=== PATIENT | female | born 1945 | race Caucasian/White ===

== ENCOUNTER → 2023-09-12 10:57 | Outpatient (REF) | payer MEDICARE, SELFPAY | LOC: HWRAD 10:57 | PROVIDERS: ATTENDING PHYSICIAN Nurse Practitioner | DX: N94.9 Unspecified condition associated with female genital organs and menstrual cycle (principal) | CPT/HCPCS: 76856 ==

== ENCOUNTER → 2023-11-06 14:23 | Outpatient (REF) | payer MEDICARE, SELFPAY ==
[2023-11-06 15:57] LABS: % Basophils 0.8 % (0-2); % Eosinophils 4.6 % (0-6); % Immature Granulocytes 0.3 % (0-0.5); % Lymphocytes 24.2 % (20.5-51.1); % Monocytes 10.7 % (1.7-9.3); % Neutrophils 59.4 % (42.2-75.2); Absolute Basophils 0.1 10^3/uL (0-0.2); Absolute Eosinophils 0.3 10^3/uL (0-0.7); Absolute Lymphocytes 1.8 10^3/uL (1.2-3.4); Absolute Monocytes 0.8 10^3/uL (0.1-0.6); Absolute Neutrophils 4.4 10^3/uL (1.4-6.5); Hematocrit 39.2 % (37.0-47.0); Mean Corp Hgb Conc. 33.2 g/dL (33.0-37.0); Mean Corpuscular Hgb 30.1 pg (27.0-31.0); Mean Corpuscular Volume 90.7 fL (81.0-99.0); Mean Platelet Volume 9.2 fL (7.4-10.4); Nucleated Red Blood Cells % 0 %; Platelet Count 251 10^3/uL (130-400); Red Blood Cell Count 4.32 10^6/uL (4.20-5.40); Red Cell Dist. Width 12.2 % (11.5-14.5); White Blood Cell Count 7.4 10^3/uL (4.8-10.8)
[2023-11-06 16:17] LABS: ALT (SGPT) 18 U/L (0-35); AST (SGOT) 24 U/L (14-36); Albumin 4.4 g/dl (3.5-5.0); Alkaline Phosphatase 88 U/L (38-126); Blood Urea Nitrogen 18 mg/dl (7-17); Calcium 10.5 mg/dl (8.4-10.2); Carbon Dioxide 28 mmol/L (22-30); Chloride 100 mmol/L (98-107); Glucose 91 mg/dl (70-99); Potassium 3.8 mmol/L (3.5-5.1); Sodium 138 mmol/L (135-145); Total Protein 7.2 g/dl (6.3-8.2); eGFR > 60.00
[2023-11-06 17:56] LABS: CEA 1.26 ng/ml
[2023-11-07 05:02] LABS: CA 125 28.3 U/mL (0-35)
== END ==
LOC: REG 14:23
PROVIDERS: ATTENDING PHYSICIAN Obstetrics & Gynecology Gynecologic Oncology; FAMILY PHYSICIAN Nurse Practitioner
DX: R19.03 Right lower quadrant abdominal swelling, mass and lump (principal); R97.8 Other abnormal tumor markers; Z12.4 Encounter for screening for malignant neoplasm of cervix
CPT/HCPCS: 36415; 80053; 82378; 85025; 86304

== ENCOUNTER → 2024-01-10 13:39 | Outpatient (REF) | payer MEDICARE, SELFPAY ==
[2024-01-10 16:51] LABS: % Basophils 1.2 % (0-2); % Eosinophils 7.2 % (0-6); % Immature Granulocytes 0.3 % (0-0.5); % Lymphocytes 26.6 % (20.5-51.1); % Monocytes 11.9 % (1.7-9.3); % Neutrophils 52.8 % (42.2-75.2); Absolute Basophils 0.1 10^3/uL (0-0.2); Absolute Eosinophils 0.5 10^3/uL (0-0.7); Absolute Lymphocytes 1.8 10^3/uL (1.2-3.4); Absolute Monocytes 0.8 10^3/uL (0.1-0.6); Absolute Neutrophils 3.5 10^3/uL (1.4-6.5); Hematocrit 38.4 % (37.0-47.0); Hemoglobin 12.9 g/dL (12.0-16.0); Mean Corp Hgb Conc. 33.6 g/dL (33.0-37.0); Mean Corpuscular Hgb 30.1 pg (27.0-31.0); Mean Corpuscular Volume 89.5 fL (81.0-99.0); Mean Platelet Volume 8.9 fL (7.4-10.4); Nucleated Red Blood Cells % 0 %; Platelet Count 270 10^3/uL (130-400); Red Blood Cell Count 4.29 10^6/uL (4.20-5.40); Red Cell Dist. Width 11.9 % (11.5-14.5); White Blood Cell Count 6.7 10^3/uL (4.8-10.8)
[2024-01-10 17:16] LABS: ALT (SGPT) 17 U/L (0-35); AST (SGOT) 24 U/L (14-36); Albumin 4.1 g/dl (3.5-5.0); Alkaline Phosphatase 87 U/L (38-126); Blood Urea Nitrogen 16 mg/dl (7-17); Calcium 9.8 mg/dl (8.4-10.2); Carbon Dioxide 32 mmol/L (22-30); Chloride 99 mmol/L (98-107); Glucose 100 mg/dl (70-99); Sodium 139 mmol/L (135-145); Total Bilirubin 0.9 mg/dl (0.2-1.3); eGFR > 60.00
== END ==
LOC: HWLAB 13:39
PROVIDERS: ATTENDING PHYSICIAN Obstetrics & Gynecology Gynecologic Oncology; FAMILY PHYSICIAN Nurse Practitioner
DX: R19.03 Right lower quadrant abdominal swelling, mass and lump (principal); R97.8 Other abnormal tumor markers; Z12.4 Encounter for screening for malignant neoplasm of cervix
CPT/HCPCS: 36415; 80053; 85025

== ENCOUNTER 2024-01-23 06:11 | Day surgery (SDC) | payer MEDICARE, SELFPAY ==
[2024-01-23] VITALS (8 sets, daily range): BP systolic 112–139; BP diastolic 69–78; BMI 33.8
[2024-01-23] MEDS: CELEBREX 200 MG PO (06:29)
[2024-01-23] MEDS: TYLENOL 1000 MG PO (06:29)
[2024-01-23] MEDS: HEPARIN 5000 UNITS SC (06:34)
[2024-01-23] MEDS: NORMOSOL-R 1000 IV (06:44)
--- NOTE | 2024-01-23 07:08 | PTCARENOTE ---
Patient does agree she is having a hysterectomy today after speaking with surgeon. Patient was questioning it on arrival but surgeon spoke with her about it. Will monitor patient.
--- NOTE | 2024-01-23 09:30 | OR.RPT ---
Operative Report
Operative Report
Date of surgery January 23, 2024
Preoperative diagnosis enlarging right ovarian mass, prior history of open hiatal hernia repair as well as ventral hernia repair
Postoperative diagnosis right ovary with serous cystadenoma, intra-abdominal adhesions
Surgeon: Codey Loera
Case Operator: Nguyễn Gardiner
Procedure:
Robotic assisted total laparoscopic hysterectomy, bilateral salpingo-oophorectomy with pelvic washings
Laparoscopic lysis of adhesions
TAP block
Repair of perineal laceration
Anesthesia: General endotracheal intubation
Estimated blood loss 50 cc
Complication: None
Procedure in detail this patient was taken to the operating room and placed in supine position, she underwent general anesthesia and was intubated without any difficulty. She was positioned in lithotomy position using yellowfin stirrups and arms
were wrapped in foam and placed along the patient's side and all joints were properly protected. She was prepped on the abdomen perineum and vagina and Hu catheter was inserted under sterile condition after the patient was draped. Timeout
procedure was carried out. Anterior lip of the cervix was grasped with single-tooth tenaculum endocervical canal was dilated and sounded to about 7 to 8 cm. Planning Rn uterine manipulator was placed in the cervical canal with 3 cm NAPOLEON ring.
Vaginal occluder was insufflated. Attention was turned abdominally, Veress needle was inserted just below the left costal margin and abdomen was insufflated with CO2 gas up to pressure of 15 mmHg. Optiview approach was used to enter under direct
laparoscopy and right upper quadrant and we were able to enter the abdominal cavity without any difficulty. Next under direct visualization 8 mm robotic ports were placed right lateral abdomen, and left lateral abdomen. I used laparoscopic
scissors to take down adhesions just below the ventral hernia in the upper abdomen and then was able to place the supraumbilical as well as left upper quadrant port. Upper abdomen was examined, liver spleen stomach and omentum were unremarkable and
there were no abnormal lesions present. Patient was placed in 30 degree Trendelenburg and robotic system was docked. We turned our attention to the pelvis, there were significant adhesions between the sigmoid colon and left infundibulopelvic
ligament as well as left ovary and these were carefully taken down. Both round ligaments were sealed and divided, anterior and posterior leaves of the broad ligament were dissected open and the course of the ureter was identified in the
retroperitoneum. An avascular window was created between the IP and ureter bilaterally. Both IP ligaments were sealed and divided 3 times. The left tube and ovary was left attached to the uterus and and the adhesions on the left side were taken
down to free up the ovary. The right tube and ovary was detached from the uterus and placed in a separate endoscopic bags for future retrieval. There were adhesions in the anterior cul-de-sac which were taken down and bladder flap was sharply
developed and advanced below the NAPOLEON ring. Uterine arteries followed by the cardinal ligaments followed by uterosacral ligaments were sealed and divided, circumferential incision was made over the NAPOLEON ring and the specimen was detached. Uterus and
cervix and left tube and ovary was removed followed by a bag containing right tube and ovary. The right tube and ovary was sent for frozen section which returned back as a smooth walled mass consistent with serous cystadenoma. The vaginal cuff was
closed with 0 Vicryl suture ligature in a [id number] fashion at both apices incorporating uterosacral ligaments for support. 2�0 V-Loc suture was used to close the vaginal cuff in 2 layers starting from right to left and back to the right
side. Good hemostasis was obtained. All operative sites were examined and there was no evidence of bleeding. We turned our attention to the regional block. A mixture of 30 cc 0.5% ropivacaine and 30 cc sterile saline was injected under direct
visualization approximately 2 fingerbreadths below costal margin above the peritoneum, as well as right and left lateral abdomen. At this point all instruments were removed and pneumoperitoneum was released. All incisions were closed at the skin
level with 4-0 Monocryl in a subcuticular fashion. Hu catheter was removed. The perineum had a second-degree laceration which was repaired with a 3-0 Vicryl in a running fashion and this was closed and tied. Rectal examination did not reveal
any injury to the rectal sphincter or rectal mucosa. Vagina was without any other lacerations and the cuff was intact and no bleeding was encountered. Counts of laps instruments and needle was correct x 2. I was present and scrubbed for the
entire procedure as dictated above. I did not perform any surgical staging as there was no indication of malignancy based on frozen section.
Disposition: To PACU, stable extubated
[2024-01-23] MEDS: DILAUDID 0.25 MG IV ×2 (10:08→10:25)
[2024-01-23] MEDS: TYLENOL 650 MG PO (12:30)
== END 2024-01-23 14:30 | disposition home or self-care (01) ==
LOC: SDS 06:11
PROVIDERS: ATTENDING PHYSICIAN Obstetrics & Gynecology Gynecologic Oncology
DX: D27.0 Benign neoplasm of right ovary (principal); R19.03 Right lower quadrant abdominal swelling, mass and lump; K66.0 Peritoneal adhesions (postprocedural) (postinfection)
CPT/HCPCS: 58571; 88305; 88307; 86850; 86900; 86901; 87070; 88112; 88329

== ENCOUNTER → 2024-04-23 12:49 | Outpatient (REF) | payer MEDICARE, SELFPAY | LOC: HWWDC 12:49 | PROVIDERS: ATTENDING PHYSICIAN Nurse Practitioner | DX: M85.80 Other specified disorders of bone density and structure, unspecified site (principal); Z12.31 Encounter for screening mammogram for malignant neoplasm of breast; N28.1 Cyst of kidney, acquired; M85.89 Other specified disorders of bone density and structure, multiple sites | CPT/HCPCS: 76775; 77063; 77067; 77080 ==

== ENCOUNTER → 2024-10-04 13:43 | Outpatient (REF) | payer MEDICARE, SELFPAY | LOC: HWRAD 13:43 | PROVIDERS: ATTENDING PHYSICIAN Nurse Practitioner Adult Health | DX: R09.89 Other specified symptoms and signs involving the circulatory and respiratory systems (principal) | CPT/HCPCS: 93880 ==

== ENCOUNTER → 2024-11-07 09:23 | Outpatient (REF) | payer MEDICARE, SELFPAY ==
[2024-11-07 12:55] LABS: % Basophils 0.7 % (0-2); % Eosinophils 6.8 % (0-6); % Immature Granulocytes 0.4 % (0-0.5); % Lymphocytes 20.8 % (20.5-51.1); % Monocytes 10.4 % (1.7-9.3); % Neutrophils 60.9 % (42.2-75.2); Absolute Basophils 0.1 10^3/uL (0-0.2); Absolute Eosinophils 0.6 10^3/uL (0-0.7); Absolute Lymphocytes 1.8 10^3/uL (1.2-3.4); Absolute Monocytes 0.9 10^3/uL (0.1-0.6); Absolute Neutrophils 5.1 10^3/uL (1.4-6.5); Hematocrit 39.8 % (37.0-47.0); Hemoglobin 13.4 g/dL (12.0-16.0); Mean Corp Hgb Conc. 33.7 g/dL (33.0-37.0); Mean Corpuscular Hgb 30.8 pg (27.0-31.0); Mean Corpuscular Volume 91.5 fL (81.0-99.0); Mean Platelet Volume 8.6 fL (7.4-10.4); Nucleated Red Blood Cells % 0 %; Platelet Count 267 10^3/uL (130-400); Red Blood Cell Count 4.35 10^6/uL (4.20-5.40); Red Cell Dist. Width 12.3 % (11.5-14.5); White Blood Cell Count 8.4 10^3/uL (4.8-10.8)
[2024-11-07 12:57] LABS: ALT (SGPT) 17 U/L (0-35); AST (SGOT) 20 U/L (14-36); Albumin 3.8 g/dl (3.5-5.0); Alkaline Phosphatase 90 U/L (38-126); Blood Urea Nitrogen 26 mg/dl (7-17); Calcium 10.2 mg/dl (8.4-10.2); Carbon Dioxide 30 mmol/L (22-30); Chloride 105 mmol/L (98-107); Glucose 113 mg/dl (70-99); HDL Cholesterol 78 mg/dl; LDL Cholesterol, Calculated 100 mg/dl; Potassium 3.8 mmol/L (3.5-5.1); Sodium 141 mmol/L (135-145); Total Bilirubin 1.2 mg/dl (0.2-1.3); Total Cholesterol 190 mg/dl (50-199); Total Protein 6.6 g/dl (6.3-8.2); Triglyceride 61 mg/dl (10-149); Very Low Density Lipoprotein 12 mg/dl (0-30); eGFR > 60.00
[2024-11-07 13:11] LABS: Vitamin D, 25-OH*** 73.8 ng/mL (30-80)
[2024-11-07 16:43] LABS: Urine Albumin 2+ (Neg - Trace); Urine Bilirubin Negative (Negative); Urine Character Clear (Clear); Urine Color Yellow; Urine Glucose Negative (Negative); Urine Ketone 1+ (Negative); Urine Leukocyte 3+ (Negative); Urine Nitrite Negative (Negative); Urine Occult Blood 1+ (Negative); Urine Urobilinogen 2+ (Neg - 1+); Urine pH 6.5 (5.0-9.0)
[2024-11-07 16:53] LABS: Urine Bacteria Moderate (Negative); Urine White Cell 30-40 /HPF (0-5)
== END ==
LOC: HWLAB 09:23
PROVIDERS: ATTENDING PHYSICIAN Nurse Practitioner Adult Health; REFERRING PHYSICIAN Internal Medicine
DX: I10 Essential (primary) hypertension (principal); K21.9 Gastro-esophageal reflux disease without esophagitis; N94.9 Unspecified condition associated with female genital organs and menstrual cycle; I35.0 Nonrheumatic aortic (valve) stenosis; G47.33 Obstructive sleep apnea (adult) (pediatric); I44.4 Left anterior fascicular block; I25.10 Atherosclerotic heart disease of native coronary artery without angina pectoris; M85.80 Other specified disorders of bone density and structure, unspecified site; R73.03 Prediabetes; M17.0 Bilateral primary osteoarthritis of knee; R76.8 Other specified abnormal immunological findings in serum
CPT/HCPCS: 36415; 80053; 80061; 81003; 81015; 82306; 84443; 85025; 87086

== ENCOUNTER → 2024-11-21 13:17 | Outpatient (REF) | payer MEDICARE, SELFPAY ==
[2024-11-21 16:45] LABS: Urine Albumin 2+ (Neg - Trace); Urine Bilirubin Negative (Negative); Urine Character Clear (Clear); Urine Color Yellow; Urine Glucose Negative (Negative); Urine Ketone Negative (Negative); Urine Leukocyte 2+ (Negative); Urine Nitrite Negative (Negative); Urine Occult Blood 1+ (Negative); Urine Urobilinogen 2+ (Neg - 1+); Urine pH 6.5 (5.0-9.0)
[2024-11-21 16:55] LABS: Urine Mucus Few; Urine Squamous Cell 0-2 /LPF (Few)
[2024-11-21 16:56] LABS: Urine Bacteria Few (Negative); Urine White Cell 0-2 /HPF (0-5)
[2024-11-22 09:19] LABS: Glycohemoglobin (HgbA1c) 5.6 % (4.0-5.6)
== END ==
LOC: HWLAB 13:17
PROVIDERS: ATTENDING PHYSICIAN Nurse Practitioner Adult Health
DX: R82.90 Unspecified abnormal findings in urine (principal); R73.01 Impaired fasting glucose
CPT/HCPCS: 36415; 81003; 81015; 83036; 87086

== ENCOUNTER → 2024-11-28 10:31 | Outpatient (REF) | payer MEDICARE, SELFPAY ==
[2024-11-28 12:33] LABS: Urine Albumin 1+ (Neg - Trace); Urine Bilirubin Negative (Negative); Urine Character Clear (Clear); Urine Color Yellow; Urine Glucose Negative (Negative); Urine Ketone Negative (Negative); Urine Leukocyte 3+ (Negative); Urine Nitrite Negative (Negative); Urine Occult Blood 1+ (Negative); Urine Urobilinogen 1+ (Neg - 1+)
[2024-11-28 13:22] LABS: Microalbumin, Random Urine 1.6 mg/dl (0.6-1.7); Microalbumin/creatinine Ratio 9.4 mg/g
[2024-11-28 14:04] LABS: Urine Amorphous Seen
[2024-11-28 14:05] LABS: Urine White Cell 16-20 /HPF (0-5)
[2024-11-28 14:07] LABS: Urine Red Blood Cell 0-2 /HPF (0-2)
== END ==
LOC: HWLAB 10:31
PROVIDERS: ATTENDING PHYSICIAN Nurse Practitioner Adult Health
DX: R94.5 Abnormal results of liver function studies (principal); R80.9 Proteinuria, unspecified
CPT/HCPCS: 81003; 81015; 82043; 82570

== ENCOUNTER → 2024-11-29 12:17 | Outpatient (REF) | payer MEDICARE, SELFPAY | LOC: HWRAD 12:17 | PROVIDERS: ATTENDING PHYSICIAN Nurse Practitioner Adult Health | DX: R94.5 Abnormal results of liver function studies (principal) | CPT/HCPCS: 76700 ==

== ENCOUNTER → 2024-12-27 11:35 | Outpatient (REF) | payer MEDICARE, SELFPAY | LOC: REG 11:35 | PROVIDERS: ATTENDING PHYSICIAN Urology | DX: R31.29 Other microscopic hematuria (principal) | CPT/HCPCS: 36415; 87070 ==

== ENCOUNTER → 2025-01-02 15:08 | Outpatient (REF) | payer MEDICARE, SELFPAY | LOC: RAD 15:08 | PROVIDERS: ATTENDING PHYSICIAN Urology; FAMILY PHYSICIAN Nurse Practitioner Adult Health | DX: R31.29 Other microscopic hematuria (principal) | CPT/HCPCS: 74178; Q9967 ==

== ENCOUNTER 2025-04-14 12:34 | Emergency (ER) | payer MEDICARE, SELFPAY ==
[2025-04-14 12:41] VITALS: BP 136/97
[2025-04-14 14:32] VITALS: BMI 32.8
--- NOTE | 2025-04-14 14:43 | ED.GENMED ---
History of Present Illness
<Abelardo Delgado Jr., PA-C - Last Filed: 04/16/25 23:14>
General
Chief Complaint: Visual Problem
Source: patient
Exam Limitations: none
Time Seen by Provider: 04/14/25 14:10
Nursing documentation reviewed up to this point in time: agreed with
History of Present Illness
History of Present Illness:
79-year-old female past medical history of aortic stenosis hypertension previous SVT presenting to the emergency department today with concerns of blurred and double vision started yesterday after eating some dinner including soup lasted for a
minute or 2 and seem to be isolated to the right eye for a few seconds then fully resolved. No symptoms today but did contact the primary care doctor that sent her to the ER. Denies any headache neck pain numbness weakness or additional concerns.
Denies similar symptoms in the past.
Past History
<Abelardo Delgado Jr., PA-C - Last Filed: 04/16/25 23:14>
Past History
ED Past Medical History: HTN and Other (SVT, ZULEYKA)
ED Past Surgical History: Cholecystectomy, Gynecological and Orthopedic
Social History
Tobacco: Former smoker
Alcohol: Occasional
Drug: None
Personal:
Living: with family
Employment: Employed
Review of Systems
<Abelardo Delgado Jr., PA-C - Last Filed: 04/16/25 23:14>
Review of Systems
Allergies reviewed?: Yes
All Other Systems: ROS reviewed and negative except as documented in HPI and ROS
Phy Exam
<Abelardo Delgado Jr., PA-C - Last Filed: 04/16/25 23:14>
Physical Exam
Physical Exam:
GENERAL: Alert , in no apparent distress
EYE: pupils equal and reactive
NECK: Supple, no significant adenopathy.
ENT: o/p clr, mmm.
CARDIAC: Regular rate and rhythm .
LUNGS: Clear breath sounds bilaterally, no acute respiratory distress, no wheezes/rales/rhonchi
ABDOMEN: Soft, without focal tenderness, no r/g, no cvat
NEUROLOGICAL: Alert and oriented, no focal neuro deficits
SKIN: Warm and dry, skin intact.
MUSCULOSKELETAL: No edema, well perfused.
PSYCH: Normal and appropriate interaction.
Course
<Abelardo Delgado Jr., PA-C - Last Filed: 04/16/25 23:14>
Orders/Labs/Results
Orders:
Orders
04/14/25 14:21
EKG [Electrocardiogram (*1)] Urgent
Reason for Study: TIA/Stroke
04/14/25 14:22
EKG- Treatment ONCE
04/14/25 14:35
CBC/With Diff [Complete Blood Count/With Diff] Urgent
CMP [Comprehensive Metabolic Panel] Urgent
04/14/25 16:06
CT Head & Neck Angio W/wo IV Urgent
Comment:
Reason For Exam: diplopia, blurred vision
04/14/25 17:41
Aspirin Chewable [Low Strength Aspirin] 81 mg PO NOW STA
Clopidogrel Bisulfate [Plavix] 75 mg PO NOW STA
Abnormal Lab Results
04/14/25
14:35
Absolute Monos (auto) 0.9 H 10^3/uL
(0.1-0.6)
Monocytes % 11.4 H %
(1.7-9.3)
Eosinophils % 6.7 H %
(0-6)
Glucose 107 H mg/dl
(70-99)
04/14/25 14:35
04/14/25 14:35
Vital Signs
Initial and Last Documented VS:
Initial Vital Signs
Temp Pulse Resp BP Pulse Ox
98.0 F 99 20 136/97 99
04/14/25 12:41 04/14/25 12:41 04/14/25 12:41 04/14/25 12:41 04/14/25 12:41
Last Documented Vital Signs
Temp Pulse Resp BP Pulse Ox
98.0 F 75 18 132/78 97
04/14/25 12:41 04/14/25 18:30 04/14/25 18:30 04/14/25 18:30 04/14/25 18:30
<Hudson Antunez PA-C - Last Filed: 04/14/25 19:40>
Orders/Labs/Results
Orders:
Orders
04/14/25 14:21
EKG [Electrocardiogram (*1)] Urgent
Reason for Study: TIA/Stroke
04/14/25 14:22
EKG- Treatment ONCE
04/14/25 14:35
CBC/With Diff [Complete Blood Count/With Diff] Urgent
CMP [Comprehensive Metabolic Panel] Urgent
04/14/25 16:06
CT Head & Neck Angio W/wo IV Urgent
Comment:
Reason For Exam: diplopia, blurred vision
04/14/25 17:41
Aspirin Chewable [Low Strength Aspirin] 81 mg PO NOW STA
Clopidogrel Bisulfate [Plavix] 75 mg PO NOW STA
Abnormal Lab Results
04/14/25
14:35
Absolute Monos (auto) 0.9 H 10^3/uL
(0.1-0.6)
Monocytes % 11.4 H %
(1.7-9.3)
Eosinophils % 6.7 H %
(0-6)
Glucose 107 H mg/dl
(70-99)
04/14/25 14:35
04/14/25 14:35
Vital Signs
Initial and Last Documented VS:
Initial Vital Signs
Temp Pulse Resp BP Pulse Ox
98.0 F 99 20 136/97 99
04/14/25 12:41 04/14/25 12:41 04/14/25 12:41 04/14/25 12:41 04/14/25 12:41
Last Documented Vital Signs
Temp Pulse Resp BP Pulse Ox
98.0 F 75 18 132/78 97
04/14/25 12:41 04/14/25 18:30 04/14/25 18:30 04/14/25 18:30 04/14/25 18:30
<Abelardo Delgado Jr., PA-C - Last Filed: 04/16/25 23:14>
MDM/Problems Addressed
MDM/Problems Addressed:
79-year-old female presenting to the emergency department today with concerns of vision changes yesterday for a few minutes fully resolved no symptoms are ongoing. Normal neurologic evaluation here. Case was discussed with neuro the recommended CT
CT angiogram and dual antiplatelet therapy\\ If no bleed.
<Abelardo Delgado Jr., PA-C - Last Filed: 04/16/25 23:14>
*Pulse Oximetry
SaO2: 99
Oxygen Mode of Delivery: Room air
<Hudson Antunez PA-C - Last Filed: 04/14/25 19:40>
*Radiology
Radiology exam reviewed: radiology read reviewed
*Pulse Oximetry
Patient hypoxic: no
*Critical Care Note
Total Time (30-74mins, 75-104mins- exclusive of procedures): Not Applicable
<Hudson Antunez PA-C - Last Filed: 04/14/25 19:40>
Patient Management
Discussion with other providers: Deburrer
Escalation/DeEscalation of care consider admission/obs:
5 PM: Patient received in signout pending CT and CTA of the head and neck.
Results of CT and CTA discussed with neurology. At this time patient is stable for discharge home on DAPT x 21 days. I also notified patients primary care provider who will follow up with the patient. Patient aware of return precautions to the ER
and stable for d/c home
ED Attending Note
<Abelardo Delgado Jr., PA-C - Last Filed: 04/16/25 23:14>
-
Portions of this chart may have been created with voice recognition software.� Occasional wrong word or��sound alike� substitutions may have occurred due to the inherent limitations of voice recognition software.
Discharge Plan
Departure
Patient Disposition: Home (Routine Discharge)
Date of Disposition: 04/14/25
Time of Disposition: 17:25
Patient with high blood pressure during this ER visit?: Yes
Discharge Problem:
Visual disturbance
Instructions: Transient ischemic attack - ED (DC)
Prescriptions:
New
clopidogrel [Plavix] 75 mg tablet
75 mg PO DAILY Qty: 20 0RF
aspirin 81 mg tablet
81 mg PO DAILY Qty: 30 0RF
No Action
fluoxetine 20 MG capsule
20 mg PO HS
fluticasone propionate 1 SPRAY spray,suspension
1 spray intranasal DAILY
albuterol sulfate 2.5 MG/3 ML solution for nebulization
2.5 mg inhalation R Q4HPRN PRN (Reason: SOB) Qty: 1 0RF
acetaminophen 325 mg Tablet
325 mg PO Q4H PRN (Reason: pain)
verapamil 240 mg Tablet Extended Release
240 mg PO DAILY
hydrochlorothiazide 25 mg Tablet
25 mg PO DAILY
albuterol 90 mcg/actuation Aerosol
90 mcg INHALATION PRN PRN (Reason: sob/wheezing)
Asmanex HFA 200 mcg/actuation Hfa Aerosol Inhaler
2 puff INHALATION BID
omeprazole 40 mg Capsule,Delayed Release(Dr/Ec)
40 mg PO DAILY
Referrals:
Dia Dick CRNP [Family Provider, General]
Interventions
Interventions:
*Risk Screen - Suicide Last Done: 04/14/25 14:32
*General Assessment Last Done: 04/14/25 12:41
*Neglect/Abuse Screening Last Done: 04/14/25 14:32
*ED- Fall Risk Assessment Last Done: 04/14/25 14:32
*ED COVID-19 Vaccine History Last Done: 04/14/25 14:32
*Nursing Disposition Last Done: 04/14/25 18:32
ED- Neurological Assessment Last Done: 04/14/25 14:32
ED-EENT Assessment Last Done: 04/14/25 14:32
ED Swallowing Screen Last Done: 04/14/25 15:32
Discharge Date and Time
Discharge Date/Time: 04/14/25 18:32
Print Language: AMHARIC
[2025-04-14 14:52] LABS: Hematocrit 39.1 % (37.0-47.0); Hemoglobin 12.9 g/dL (12.0-16.0); Mean Corp Hgb Conc. 33.0 g/dL (33.0-37.0); Mean Corpuscular Volume 89.9 fL (81.0-99.0); Nucleated Red Blood Cells % 0 %; Platelet Count 245 10^3/uL (130-400); Red Cell Dist. Width 11.8 % (11.5-14.5)
[2025-04-14 15:03] LABS: ALT (SGPT) 17 U/L (0-35); AST (SGOT) 22 U/L (14-36); Albumin 4.5 g/dl (3.5-5.0); Alkaline Phosphatase 87 U/L (38-126); Blood Urea Nitrogen 15 mg/dl (7-17); Calcium 10.2 mg/dl (8.4-10.2); Carbon Dioxide 29 mmol/L (22-30); Chloride 100 mmol/L (98-107); Estimated Creatinine Clearance 54 ml/min; Glucose 107 mg/dl (70-99); Potassium 3.9 mmol/L (3.5-5.1); Sodium 135 mmol/L (135-145); Total Protein 7.4 g/dl (6.3-8.2); eGFR > 60.00
[2025-04-14] MEDS: LOW STRENGTH ASPIRIN 81 MG PO (17:46)
[2025-04-14] MEDS: PLAVIX 75 MG PO (17:46)
[2025-04-14 18:30] VITALS: BP 132/78
== END 2025-04-14 18:32 | disposition home or self-care (01) ==
LOC: EMR 12:34
PROVIDERS: Physician Assistant; EMERGENCY PHYSICIAN Emergency Medicine; FAMILY PHYSICIAN Nurse Practitioner Adult Health
DX: H53.2 Diplopia (principal); H53.8 Other visual disturbances; I35.0 Nonrheumatic aortic (valve) stenosis; I10 Essential (primary) hypertension; G47.33 Obstructive sleep apnea (adult) (pediatric); Z79.02 Long term (current) use of antithrombotics/antiplatelets; Z79.82 Long term (current) use of aspirin; Z86.79 Personal history of other diseases of the circulatory system; Z87.891 Personal history of nicotine dependence
CPT/HCPCS: 99284; 70496; 70498; 80053; 85025; 93005; Q9967

== ENCOUNTER → 2025-05-09 08:49 | Outpatient (REF) | payer MEDICARE, SELFPAY ==
[2025-05-09 12:23] LABS: HDL Cholesterol 66 mg/dl; LDL Cholesterol, Calculated 96 mg/dl; Very Low Density Lipoprotein 15 mg/dl (0-30)
== END ==
LOC: HWLAB 08:49
PROVIDERS: ATTENDING PHYSICIAN Nurse Practitioner Adult Health
DX: G45.9 Transient cerebral ischemic attack, unspecified (principal); F33.0 Major depressive disorder, recurrent, mild
CPT/HCPCS: 36415; 80061; 84443

== ENCOUNTER → 2025-05-26 12:41 | Outpatient (REF) | payer MEDICARE, SELFPAY ==
--- NOTE | 2025-05-26 14:46 | PTCARENOTE ---
# 20 chantel placed Left AC. Bubble study done with Phylicia, computer technologist. INT d/c'd. Pressure held. Dsg applied. No bleeding noted.
== END ==
LOC: RCS 12:41
PROVIDERS: ATTENDING PHYSICIAN Nurse Practitioner; FAMILY PHYSICIAN Nurse Practitioner Adult Health
DX: G45.9 Transient cerebral ischemic attack, unspecified (principal); I35.0 Nonrheumatic aortic (valve) stenosis
CPT/HCPCS: 93306

== ENCOUNTER → 2025-06-10 12:07 | Outpatient (REF) | payer MEDICARE, SELFPAY | LOC: PAVMRI 12:07 | PROVIDERS: ATTENDING PHYSICIAN Nurse Practitioner Adult Health | DX: G45.9 Transient cerebral ischemic attack, unspecified (principal); I10 Essential (primary) hypertension; H43.393 Other vitreous opacities, bilateral | CPT/HCPCS: 70551 ==